=== PATIENT | female | born 1985 | race American Indian/Alaskan Native ===

== ENCOUNTER 2016-04-18 10:13 | Emergency (ER) | payer SELFPAY ==
[2016-04-18 10:50] VITALS: BP 102/56
--- NOTE | 2016-04-18 13:22 | Emergency Department Report ---
ED Rash HPI - HPI Chief Complaint: Skin Rash Stated Complaint: ALLERGIC REACTION/RASH ON RT ARM/BOTH LEGS/VAG Time Seen by Provider: 04/18/16 12:49 Duration: 5 Days Location: Back, Abdomen, Upper Extremities, Lower Extremities Rash Symptoms: Yes Itching, No Facial Swelling, No Tongue/Oral Swelling, No Breathing Difficulties, No Choking Sensation, No Wheezing/Dyspnea, No Peeling, No Blistering, No Fever Severity: moderate Other History: 30-year-old female past medical history asthma presents with complaint of patches of itchy scaly skin started and extremities and progressed to torso. Patient denies any fever chills no nausea no vomiting denies any shortness of breath. States that skin is scaly itchy and she has been scratching. No recent travel ED Review of Systems ROS: Stated complaint: ALLERGIC REACTION/RASH ON RT ARM/BOTH LEGS/VAG Other details as noted in HPI Constitutional: denies: chills, fever Eyes: denies: eye pain, eye discharge, vision change ENT: denies: ear pain, throat pain Respiratory: denies: cough, shortness of breath, wheezing Cardiovascular: denies: chest pain, palpitations Endocrine: no symptoms reported Gastrointestinal: denies: abdominal pain, nausea, diarrhea Genitourinary: denies: urgency, dysuria, discharge Musculoskeletal: denies: back pain, joint swelling, arthralgia Skin: as per HPI, rash, pruritus. denies: lesions Neurological: denies: headache, weakness, paresthesias Psychiatric: denies: anxiety, depression Hematological/Lymphatic: denies: easy bleeding, easy bruising ED Past Medical Hx - Past Medical History Previous Medical History?: No - Surgical History Past Surgical History?: No - Social History Smoking Status: Current Every Day Smoker Substance Use Type: None - Medications Home Medications: Home Medications Medication Instructions Recorded Confirmed Last Taken Type Clotrimazole/Betamethasone Dip 45 gm TP BID #1 cream..g. 04/18/16 Unknown Rx [Clotrimazole-Betamethasone Crm] Rash Exam - Exam General: Vital signs noted. No distress. Alert and acting appropriately. HEENT: No Periorbital Edema, No Conjuctival Injection, No Chemosis, No Perioral Edema, No Tongue Edema, No Uvular Edema, No Compromised Airway, No Drooling Lungs: Yes Good Air Exchange (Normal Breath Sounds), No Wheezes, No Ronchi, No Stridor, No Cough, No Labored Respirations, No Retractions, No Use of Accessory Muscles, No Other Abnormal Lung Sounds Heart: Yes Regular, No Murmur Skin: Yes Maculopapular Rash (dry scaly oval patches on extremities abdomen and lower back consistent with tinea corporis infection, no erythema chrsitmas tree pattern), No Urticarial Rash, No Morbilliform rash, No Bulla(e), No Excoriations , No Weeping, No Tenderness, No Erythema, No Edema, No Encrustations, No Other Other: Positive: Abdomen Normal, Neurologic Normal, Musculoskeletal Normal ED Course Vital Signs 04/18/16 10:47 Temperature 98.7 F Pulse Rate 75 Respiratory 18 Rate Blood Pressure 102/56 O2 Sat by Pulse 100 Oximetry ED Medical Decision Making - Medical Decision Making A/P: tinea corporis 1-patient has skin lesions consistent with tinea corporis dry scaly patches on abdomen and extremities lower back 2-clotrimazole cream twice a day to affected areas, Selsun Blue shampoo 3-follow-up with primary care doctor Critical care attestation.: If time is entered above; I have spent that time in minutes in the direct care of this critically ill patient, excluding procedure time. ED Disposition Clinical Impression: Tinea corporis Disposition: DISCHARGED TO HOME OR SELFCARE Is pt being admited?: No Does the pt Need Aspirin: No Condition: Stable Instructions: Tinea Corporis (ED) Prescriptions: Clotrimazole/Betamethasone Dip [Clotrimazole-Betamethasone Crm] 45 gm TP BID #1 cream..g. Referrals: PRIMARY CARE, [Primary Care Provider] - 3-5 Days [facility] [place][Note 3] [Outside] - 3-5 Days JUVENTINO AVILA MD [Staff Physician] - 3-5 Days Forms: Work/School Release Form(ED) Time of Disposition: 13:23
== END 2016-04-18 13:48 | disposition home or self-care (01) ==
LOC: ED 10:13
DX: B35.4 Tinea corporis (principal); F17.200 Nicotine dependence, unspecified, uncomplicated; J45.909 Unspecified asthma, uncomplicated
CPT/HCPCS: 99281